=== PATIENT | female | born 1985 | race American Indian/Alaskan Native ===

== ENCOUNTER 2022-07-02 12:24 | Emergency (ER) | payer OTHER ==
[~2022-07-02] VITALS: Ht 165.1 cm; Wt 99.8 kg
[~2022-07-02 12:24] MED LIST: IBUPROFEN400 MG PO; INDOMETHACIN50 MG PO; NORCO 5-325 TA1 EACH PO; PRENATAL + DHA1 EAC1 PO
[2022-07-02] MEDS ORDERED: FISH OIL 1,0001 EAC5 PO (13:25)
[2022-07-02] MEDS ORDERED: VITAMIN B122500 MCG PO (13:26)
[2022-07-02] MEDS ORDERED: HYDROCODON-ACE1 EA10 PO (15:34)
== END 2022-07-02 15:55 | disposition home or self-care (01) ==
LOC: ED 12:24
DX: R10.31 Right lower quadrant pain (principal); N83.202 Unspecified ovarian cyst, left side; Z88.0 Allergy status to penicillin; Z79.899 Other long term (current) drug therapy
CPT/HCPCS: 36415; 74177; 76830; 76856; 80053; 81001; 84702; 85025; 86850; 86900; 86901; J1170; J1885; J2405; J7030; Q9967

== ENCOUNTER 2023-08-16 21:56 | Emergency (ER) | payer OTHER ==
[~2023-08-16] VITALS: Ht 165.1 cm; Wt 104.0 kg
[~2023-08-16 21:56] MED LIST changes: +FISH OIL 1,0001 EAC5 PO; +HYDROCODON-ACE1 EA10 PO; +VITAMIN B122500 MCG PO
[2023-08-16 22:13] LABS: BILIRUBIN, URINE NEGATIVE (negative); BLOOD/HGB, URINE NEGATIVE (Negative); KETONE, URINE NEGATIVE (Negative); LEUK ESTERASE, URINE NEGATIVE (negative); NITRITE, URINE NEGATIVE (negative); PH, URINE 5.5 (5-7)
[2023-08-16 23:05] VITALS: BP 133/69
== END 2023-08-16 23:06 | disposition home or self-care (01) ==
LOC: ED 21:56
PROVIDERS: Internal Medicine
DX: S39.012A Strain of muscle, fascia and tendon of lower back, initial encounter (principal); X58.XXXA Exposure to other specified factors, initial encounter; Z88.0 Allergy status to penicillin
CPT/HCPCS: 81003; 84703; 99283; A9270

== ENCOUNTER 2025-05-18 18:29 | Emergency (ER) | payer BC ==
[~2025-05-18] VITALS: Ht 165.1 cm; Wt 105.0 kg
[2025-05-18] MEDS ORDERED: VITAFOL-OB+DHA1 EACH PO (20:31)
[2025-05-18] MEDS ORDERED: MORPHINE SULFATE 4 MG/ML VIAL IV ONE (20:45)
[2025-05-18] MEDS ORDERED: SODIUM CHLORIDE 0.9% 1,000 ML IV ONE (20:45)
[2025-05-18 20:54] LABS: BASOPHILS 0.7 % (0.1-1.2); EOSINOPHILS 2.2 % (0.7-5.8); LYMPHOCYTES 34.1 % (19.3-51.7); MCH 28.7 PG (25.6-32.2); MCHC 33.2 g/dL (32.2-35.5); MCV 86.3 fL (79.4-94.8); MONOCYTES 7.1 % (4.7-12.5); NEUTROPHILS 55.5 % (34.0-71.1); RBC 4.46 M/uL (3.93-5.22)
[2025-05-18 20:56] LABS: BLOOD/HGB, URINE NEGATIVE (Negative); KETONE, URINE NEGATIVE (Negative); LEUK ESTERASE, URINE NEGATIVE (negative); NITRITE, URINE NEGATIVE (negative)
[2025-05-18] MEDS ORDERED: KETOROLAC TROMETHAMINE 30 MG/ML VIAL IV ONE (21:00)
[2025-05-18 21:11] LABS: ALT (SGPT) 50.0 U/L (14-59); AST (SGOT) 32.0 U/L (15-37); GLOMERULAR FILTRATION RATE,EST 115.0 mL/min (>60); PROTEIN, TOTAL 8.3 g/dL (6.4-8.2); UREA NITROGEN 11.0 mg/dL (7-18)
[2025-05-18] MEDS ORDERED: ONDANSETRON ODT8 MG PO (22:34)
[2025-05-18] MEDS ORDERED: HYDROCODON-ACE1 EA10 PO (22:34)
[2025-05-18] MEDS ORDERED: ONDANSETRON 4 MG HOME.PACK SL ONE (22:45)
[2025-05-18] MEDS ORDERED: HYDROCODONE BIT/ACETAMINOPHEN 5/325 MG 1 TAB HOME.PACK PO ONE (22:45)
[2025-05-18 22:48] VITALS: BP 139/75
== END 2025-05-18 22:50 | disposition home or self-care (01) ==
LOC: ED 18:29
PROVIDERS: Family Medicine
DX: K80.50 Calculus of bile duct without cholangitis or cholecystitis without obstruction (principal); Z88.1 Allergy status to other antibiotic agents
CPT/HCPCS: 36415; 74177; 80053; 81003; 83690; 84703; 85025; 96374; 96375; 99284-25; A9270; J1885; J2405; J7030; Q9967